=== PATIENT | male | born 1945 | race Caucasian/White ===

== ENCOUNTER 2021-04-15 13:37 | Inpatient (IN) ==
[2021-04-15] MEDS ORDERED: ONDANSETRON 4 MG/2 ML VIAL IV PRN (14:09)
[2021-04-15] MEDS ORDERED: diphenhydrAMINE CAP 25 MG CAPSULE PO PRN (14:09)
[2021-04-15] MEDS ORDERED: PROMETHAZINE 25 MG TABLET PO PRN (14:09)
[2021-04-15] MEDS ORDERED: MAGNESIUM SULF RIDER 4 GM/100 ML PREMIX IV PRN (14:09)
[2021-04-15] MEDS ORDERED: ACETAMINOPHEN 325 MG TABLET PO PRN (14:09)
[2021-04-15] MEDS ORDERED: DOCUSATE SODIUM 100 MG CAPSULE PO PRN (14:09)
[2021-04-15] MEDS ORDERED: ALUMINUM/MAGNES/SIMETH MAX STR 30 ML UDCUP PO PRN (14:09)
[2021-04-15] MEDS ORDERED: MORPHINE 4 MG/1 ML VIAL IV PRN (14:09)
[2021-04-15] MEDS ORDERED: hydrALAZINE 20 MG/1 ML VIAL IV PRN (14:09)
[2021-04-15] MEDS ORDERED: guaiFENesin/DM ER 600-30 MG TABLET PO PRN (14:09)
[2021-04-15] MEDS: DILTIAZEM INJ 100 MG in SODIUM CHLORIDE 0.9% 100 ML IV SCH (15:01)
[2021-04-15 15:43] LABS: Basophils % 0.5 % (0.0-0.8); Eosinophils % 0.3 % (0.00-10.9); Hematocrit 36.5 VOL% (42.0-52.0); Hemoglobin 11.7 GM/DL (14.0-18.0); Immature Granulocytes % 0.5 %; Immature Granulocytes Absolute 0.02 #; Lymphocytes # 0.9 10*3/uL (1.4-4.0); Lymphocytes % 22.9 % (21.2-54.2); Mean Corpuscular HGB Conc 32.1 GM/DL (32-36); Mean Corpuscular Volume 84.1 FL (87-102); Monocytes % 11.1 % (1.7-12.7); Neutrophils % 64.7 % (38.7-73.9); Platelet Count 182 T/CUMM (130-400); Red Blood Count 4.34 MC/CUMM (3.8-5.5); Red Cell Distribution Width 14.4 % (9.3-17.3)
[2021-04-15 16:15] LABS: Alanine Aminotransferase 18 U/L (16-61); Alkaline Phosphatase 91 U/L (45-117); Aspartate Amino Transferase 19 U/L (0-37); Blood Urea Nitrogen 17 MG/DL (7-18); Calcium 9.1 MG/DL (8.5-10.1); Carbon Dioxide 25 MMOL/L (21-32); Estimated Glom Filtration Rate 82 ML/MIN; Glucose 103 MG/DL (74-106); HDL Cholesterol 44 MG/DL (40-60); Osmolality,Calculated 287.8 MOS/KG (273-304); Potassium 4.3 MMOL/L (3.5-5.1); Risk Ratio 1.98; Sodium 144 MMOL/L (136-145); Thyroid Stimulating Hormone < 0.005 uIU/ml (0.358-3.74); Total Protein 6.2 G/DL (6.4-8.2); Triglycerides 78 MG/DL (2-150); VLDL CHOLESTEROL 15.6 MG/DL
[2021-04-15] MEDS: INSULIN LISPRO 100 UNIT/ML SUBCUT SCH ×2 (16:24→21:02)
[2021-04-15] MEDS: MAGNESIUM SULF RIDER 2 GM/50 ML PREMIX IV PRN (16:38)
[2021-04-15] MEDS: ALBUTEROL 2.5 MG/3 ML NEB RESP TX SCH (18:48)
[2021-04-15] MEDS: SOTALOL 80 MG TABLET PO SCH (21:02)
[2021-04-16] MEDS: ALBUTEROL 2.5 MG/3 ML NEB RESP TX SCH ×4 (01:05→23:17)
[2021-04-16 05:05] LABS: Basophils % 0.4 % (0.0-0.8); Eosinophils # 0.1 10*3/uL (0.0-0.87); Eosinophils % 1.2 % (0.00-10.9); Hematocrit 36.2 VOL% (42.0-52.0); Hemoglobin 11.4 GM/DL (14.0-18.0); Immature Granulocytes % 0.4 %; Immature Granulocytes Absolute 0.02 #; Lymphocytes # 1.2 10*3/uL (1.4-4.0); Lymphocytes % 25.4 % (21.2-54.2); Mean Corpuscular HGB Conc 31.5 GM/DL (32-36); Mean Corpuscular Volume 84.4 FL (87-102); Mean Platelet Volume 9.3 FL (9.6-12.0); Monocytes % 11.1 % (1.7-12.7); Neutrophils % 61.5 % (38.7-73.9); Platelet Count 192 T/CUMM (130-400); Red Blood Count 4.29 MC/CUMM (3.8-5.5); Red Cell Distribution Width 14.6 % (9.3-17.3); White Blood Count 4.9 T/CUMM (4-12)
[2021-04-16 05:35] LABS: Bilirubin,Total 0.9 MG/DL (0.2-1.0); Calcium 8.8 MG/DL (8.5-10.1); Osmolality,Calculated 288.8 MOS/KG (273-304); Potassium 4.1 MMOL/L (3.5-5.1); Total Protein 6.2 G/DL (6.4-8.2)
[2021-04-16] MEDS: INSULIN LISPRO 100 UNIT/ML SUBCUT SCH ×4 (10:02→20:34)
[2021-04-16] MEDS: SOTALOL 80 MG TABLET PO SCH ×3 (10:02→20:42)
[2021-04-16] MEDS: PANTOPRAZOLE 40 MG TABLET PO SCH ×2 (10:03→10:12)
[2021-04-16] MEDS ORDERED: DEXTROSE 50% 25 GM/50 ML VIAL IV PRN (15:32)
[2021-04-16] MEDS ORDERED: GLUCAGON 1 MG VIAL IM PRN (15:32)
[2021-04-16] MEDS: metFORMIN 500 MG TABLET PO SCH (17:22)
[2021-04-16] MEDS: RIVAROXABAN 20 MG TABLET PO SCH (17:22)
[2021-04-16] MEDS: ATORVASTATIN 40 MG TABLET PO SCH (20:42)
[2021-04-17] MEDS: ALBUTEROL 2.5 MG/3 ML NEB RESP TX SCH ×4 (02:25→19:37)
[2021-04-17] MEDS: DILTIAZEM INJ 100 MG in SODIUM CHLORIDE 0.9% 100 ML IV SCH ×2 (03:55→23:34)
[2021-04-17 06:26] LABS: Basophils % 0.2 % (0.0-0.8); Eosinophils # 0.1 10*3/uL (0.0-0.87); Eosinophils % 2.5 % (0.00-10.9); Hematocrit 34.8 VOL% (42.0-52.0); Immature Granulocytes % 0.2 %; Immature Granulocytes Absolute 0.01 #; Lymphocytes % 21.3 % (21.2-54.2); Mean Corpuscular HGB Conc 31.6 GM/DL (32-36); Mean Corpuscular Volume 84.1 FL (87-102); Mean Platelet Volume 9.6 FL (9.6-12.0); Monocytes % 11.2 % (1.7-12.7); Neutrophils % 64.6 % (38.7-73.9); Platelet Count 161 T/CUMM (130-400); Red Blood Count 4.14 MC/CUMM (3.8-5.5); Red Cell Distribution Width 14.4 % (9.3-17.3); White Blood Count 4.5 T/CUMM (4-12)
[2021-04-17 06:39] LABS: Calcium 8.8 MG/DL (8.5-10.1); Potassium 3.9 MMOL/L (3.5-5.1)
[2021-04-17] MEDS: INSULIN LISPRO 100 UNIT/ML SUBCUT SCH ×4 (07:41→20:39)
[2021-04-17] MEDS: metFORMIN 500 MG TABLET PO SCH ×2 (08:25→16:14)
[2021-04-17] MEDS: SOTALOL 80 MG TABLET PO SCH ×2 (08:26→20:39)
[2021-04-17] MEDS: MULTIVITAMIN (CENTRUM) TABLET PO SCH (08:26)
[2021-04-17] MEDS: PANTOPRAZOLE 40 MG TABLET PO SCH (08:26)
[2021-04-17] MEDS ORDERED: NON-FORMULARY MEDICATION (Omeprazole 20 MG capsule,delayed release(DR/EC)) PO SCH (09:00)
[2021-04-17] MEDS: methIMAzole 5 MG TABLET PO SCH (16:13)
[2021-04-17] MEDS: RIVAROXABAN 20 MG TABLET PO SCH (16:14)
[2021-04-17] MEDS: ATORVASTATIN 40 MG TABLET PO SCH (20:39)
[2021-04-18] MEDS: ALBUTEROL 2.5 MG/3 ML NEB RESP TX SCH ×4 (01:21→20:20)
[2021-04-18 05:08] LABS: Basophils % 0.2 % (0.0-0.8); Eosinophils # 0.1 10*3/uL (0.0-0.87); Eosinophils % 1.9 % (0.00-10.9); Hematocrit 33.4 VOL% (42.0-52.0); Hemoglobin 10.8 GM/DL (14.0-18.0); Immature Granulocytes % 0.2 %; Immature Granulocytes Absolute 0.01 #; Lymphocytes # 0.9 10*3/uL (1.4-4.0); Lymphocytes % 21.9 % (21.2-54.2); Mean Corpuscular HGB Conc 32.3 GM/DL (32-36); Mean Corpuscular Volume 83.5 FL (87-102); Mean Platelet Volume 9.8 FL (9.6-12.0); Monocytes % 12.4 % (1.7-12.7); Neutrophils % 63.4 % (38.7-73.9); Platelet Count 162 T/CUMM (130-400); Red Cell Distribution Width 14.3 % (9.3-17.3); White Blood Count 4.2 T/CUMM (4-12)
[2021-04-18 05:55] LABS: Calcium 8.6 MG/DL (8.5-10.1); Osmolality,Calculated 287.8 MOS/KG (273-304); Potassium 3.6 MMOL/L (3.5-5.1)
[2021-04-18] MEDS ORDERED: MAGNESIUM SULF RIDER 2 GM/50 ML PREMIX IV ONE (07:12)
[2021-04-18] MEDS: methIMAzole 5 MG TABLET PO SCH ×3 (09:04→17:54)
[2021-04-18] MEDS: SOTALOL 80 MG TABLET PO SCH ×2 (09:04→20:06)
[2021-04-18] MEDS: MULTIVITAMIN (CENTRUM) TABLET PO SCH (09:04)
[2021-04-18] MEDS: INSULIN LISPRO 100 UNIT/ML SUBCUT SCH ×4 (09:04→20:27)
[2021-04-18] MEDS: metFORMIN 500 MG TABLET PO SCH ×2 (09:04→17:54)
[2021-04-18] MEDS: PANTOPRAZOLE 40 MG TABLET PO SCH (09:04)
[2021-04-18] MEDS: RIVAROXABAN 20 MG TABLET PO SCH (17:54)
[2021-04-18] MEDS: POTASSIUM CHLORIDE 20 MEQ TABLET PO PRN ×2 (17:54→20:06)
[2021-04-18] MEDS: ATORVASTATIN 40 MG TABLET PO SCH (20:06)
[2021-04-18] MEDS: DILTIAZEM INJ 100 MG in SODIUM CHLORIDE 0.9% 100 ML IV SCH (22:30)
[2021-04-19] MEDS: ALBUTEROL 2.5 MG/3 ML NEB RESP TX SCH ×3 (02:04→13:20)
[2021-04-19 05:44] LABS: Basophils % 0.4 % (0.0-0.8); Eosinophils # 0.1 10*3/uL (0.0-0.87); Eosinophils % 1.4 % (0.00-10.9); Hematocrit 33.8 VOL% (42.0-52.0); Immature Granulocytes % 0.4 %; Immature Granulocytes Absolute 0.02 #; Lymphocytes % 20.8 % (21.2-54.2); Mean Corpuscular HGB Conc 32.5 GM/DL (32-36); Mean Corpuscular Volume 83.3 FL (87-102); Mean Platelet Volume 10.2 FL (9.6-12.0); Monocytes % 12.1 % (1.7-12.7); Neutrophils % 64.9 % (38.7-73.9); Platelet Count 168 T/CUMM (130-400); Red Blood Count 4.06 MC/CUMM (3.8-5.5); Red Cell Distribution Width 14.2 % (9.3-17.3); White Blood Count 4.9 T/CUMM (4-12)
[2021-04-19 06:12] LABS: Calcium 8.7 MG/DL (8.5-10.1); Osmolality,Calculated 285.8 MOS/KG (273-304); Potassium 3.8 MMOL/L (3.5-5.1)
[2021-04-19] MEDS: INSULIN LISPRO 100 UNIT/ML SUBCUT SCH ×3 (07:37→16:06)
[2021-04-19] MEDS: metFORMIN 500 MG TABLET PO SCH ×2 (08:53→16:06)
[2021-04-19] MEDS: methIMAzole 5 MG TABLET PO SCH ×3 (08:53→16:06)
[2021-04-19] MEDS: PANTOPRAZOLE 40 MG TABLET PO SCH (09:21)
[2021-04-19] MEDS: MULTIVITAMIN (CENTRUM) TABLET PO SCH (09:21)
[2021-04-19] MEDS: SOTALOL 80 MG TABLET PO SCH (09:21)
[2021-04-19] MEDS: MAGNESIUM SULF RIDER 2 GM/50 ML PREMIX IV PRN (09:22)
[2021-04-19] MEDS ORDERED: LIDOCAINE 2% 5 ML VIAL ONE (10:25)
[2021-04-19] MEDS ORDERED: propofoL 200 MG/20 ML VIAL IV ONE (10:25)
[2021-04-19 12:23] VITALS: BP 124/71
[2021-04-19] MEDS: DILTIAZEM INJ 100 MG in SODIUM CHLORIDE 0.9% 100 ML IV SCH (14:15)
== END 2021-04-19 16:31 | disposition home or self-care (01) | DRG 309 ==
LOC: N.TELES 14:13
PROVIDERS: ADMIT Internal Medicine Cardiovascular Disease; ATTEND Internal Medicine Cardiovascular Disease

== ENCOUNTER 2021-04-26 09:45 | Inpatient (IN) ==
[2021-04-26] MEDS ORDERED: DILTIAZEM 50 MG/10 ML VIAL IV STA ×2 (10:15→11:25)
[2021-04-26] MEDS ORDERED: ASPIRIN 325 MG TABLET PO STA (10:15)
[2021-04-26 10:56] LABS: Basophils % 0.2 % (0.0-0.8); Eosinophils # 0.1 10*3/uL (0.0-0.87); Eosinophils % 1.4 % (0.00-10.9); Hematocrit 38.5 VOL% (42.0-52.0); Hemoglobin 12.7 GM/DL (14.0-18.0); Immature Granulocytes % 0.2 %; Immature Granulocytes Absolute 0.01 #; Lymphocytes % 23.9 % (21.2-54.2); Mean Corpuscular Volume 81.7 FL (87-102); Mean Platelet Volume 9.5 FL (9.6-12.0); Monocytes % 11.6 % (1.7-12.7); Neutrophils % 62.7 % (38.7-73.9); Platelet Count 210 T/CUMM (130-400); Red Blood Count 4.71 MC/CUMM (3.8-5.5); Red Cell Distribution Width 14.1 % (9.3-17.3); White Blood Count 4.2 T/CUMM (4-12)
[2021-04-26 11:06] LABS: INR 1.3; PT Patient Result 14.1 SECS (10.5-12.0)
[2021-04-26 11:20] LABS: Albumin 3.1 G/DL (3.4-5.0); Bilirubin,Total 0.5 MG/DL (0.2-1.0); Calcium 9.3 MG/DL (8.5-10.1); Osmolality,Calculated 281.3 MOS/KG (273-304); Potassium 4.5 MMOL/L (3.5-5.1); Total Protein 6.6 G/DL (6.4-8.2)
[2021-04-26] MEDS ORDERED: METOPROLOL TARTRATE 5 MG/5 ML VIAL IV STA (12:00)
[2021-04-26 12:02] LABS: Free T4 (Free Thyroxine) 2.27 NG/DL (0.76-1.46); Thyroid Stimulating Hormone < 0.005 uIU/ml (0.358-3.74)
[2021-04-26] MEDS ORDERED: MAGNESIUM SULF RIDER 4 GM/100 ML PREMIX IV PRN (12:06)
[2021-04-26] MEDS ORDERED: ONDANSETRON 4 MG/2 ML VIAL IV PRN (12:06)
[2021-04-26] MEDS ORDERED: DEXTROSE 50% 25 GM/50 ML VIAL IV PRN (14:46)
[2021-04-26] MEDS ORDERED: GLUCAGON 1 MG VIAL IM PRN (14:46)
[2021-04-26] MEDS: METOPROLOL SUCCINATE XL 50 MG TABLET PO SCH (15:21)
[2021-04-26] MEDS: INSULIN LISPRO 100 UNIT/ML SUBCUT SCH ×2 (16:27→22:32)
[2021-04-26] MEDS: RIVAROXABAN 20 MG TABLET PO SCH (16:46)
[2021-04-26] MEDS ORDERED: methIMAzole 5 MG TABLET PO SCH ×2 (17:00)
[2021-04-26] MEDS ORDERED: METOPROLOL TARTRATE 5 MG/5 ML VIAL IV PRN ×3 (18:14→19:06)
[2021-04-26] MEDS ORDERED: METOPROLOL TARTRATE 5 MG/5 ML VIAL IV SCH ×2 (18:30)
[2021-04-26] MEDS: METOPROLOL TARTRATE 5 MG/5 ML VIAL IV SCH ×3 (18:35→18:50)
[2021-04-26] MEDS: ATORVASTATIN 40 MG TABLET PO SCH (20:37)
[2021-04-26] MEDS: SOTALOL 80 MG TABLET PO SCH (20:37)
[2021-04-27 06:09] LABS: Basophils % 0.2 % (0.0-0.8); Eosinophils # 0.1 10*3/uL (0.0-0.87); Eosinophils % 1.2 % (0.00-10.9); Hematocrit 36.8 VOL% (42.0-52.0); Immature Granulocytes % 0.2 %; Immature Granulocytes Absolute 0.01 #; Lymphocytes # 1.1 10*3/uL (1.4-4.0); Lymphocytes % 20.3 % (21.2-54.2); Mean Corpuscular HGB Conc 32.6 GM/DL (32-36); Mean Corpuscular Volume 81.6 FL (87-102); Mean Platelet Volume 9.5 FL (9.6-12.0); Monocytes % 9.1 % (1.7-12.7); Platelet Count 192 T/CUMM (130-400); Red Blood Count 4.51 MC/CUMM (3.8-5.5); White Blood Count 5.6 T/CUMM (4-12)
[2021-04-27 06:40] LABS: Albumin 2.8 G/DL (3.4-5.0); Bilirubin,Total 0.6 MG/DL (0.2-1.0); Calcium 9.1 MG/DL (8.5-10.1); Osmolality,Calculated 280.3 MOS/KG (273-304); Potassium 3.9 MMOL/L (3.5-5.1); Total Protein 5.9 G/DL (6.4-8.2)
[2021-04-27] MEDS: INSULIN LISPRO 100 UNIT/ML SUBCUT SCH ×4 (07:56→20:39)
[2021-04-27] MEDS: PANTOPRAZOLE 40 MG TABLET PO SCH (08:40)
[2021-04-27] MEDS: SOTALOL 80 MG TABLET PO SCH ×2 (08:40→20:42)
[2021-04-27] MEDS: METOPROLOL SUCCINATE XL 50 MG TABLET PO SCH (08:41)
[2021-04-27] MEDS: MAGNESIUM SULF RIDER 2 GM/50 ML PREMIX IV PRN (12:20)
[2021-04-27] MEDS: METOPROLOL TARTRATE 25 MG TABLET PO SCH ×3 (12:21→23:28)
[2021-04-27] MEDS: RIVAROXABAN 20 MG TABLET PO SCH (17:03)
[2021-04-27] MEDS: ATORVASTATIN 40 MG TABLET PO SCH (20:43)
[2021-04-28 05:22] LABS: Basophils % 0.5 % (0.0-0.8); Eosinophils # 0.1 10*3/uL (0.0-0.87); Eosinophils % 1.3 % (0.00-10.9); Hematocrit 36.6 VOL% (42.0-52.0); Hemoglobin 12.2 GM/DL (14.0-18.0); Immature Granulocytes % 0.3 %; Immature Granulocytes Absolute 0.01 #; Lymphocytes # 1.2 10*3/uL (1.4-4.0); Mean Corpuscular HGB Conc 33.3 GM/DL (32-36); Mean Corpuscular Volume 80.4 FL (87-102); Mean Platelet Volume 9.4 FL (9.6-12.0); Monocytes % 14.6 % (1.7-12.7); Neutrophils % 52.3 % (38.7-73.9); Platelet Count 181 T/CUMM (130-400); Red Blood Count 4.55 MC/CUMM (3.8-5.5); Red Cell Distribution Width 14.2 % (9.3-17.3); White Blood Count 3.8 T/CUMM (4-12)
[2021-04-28] MEDS: METOPROLOL TARTRATE 25 MG TABLET PO SCH (05:31)
[2021-04-28 05:42] LABS: Calcium 8.6 MG/DL (8.5-10.1); Osmolality,Calculated 283.1 MOS/KG (273-304); Potassium 3.7 MMOL/L (3.5-5.1)
[2021-04-28] MEDS: PANTOPRAZOLE 40 MG TABLET PO SCH (09:47)
[2021-04-28] MEDS: SOTALOL 80 MG TABLET PO SCH ×3 (09:47→20:49)
[2021-04-28] MEDS: INSULIN LISPRO 100 UNIT/ML SUBCUT SCH ×4 (09:50→20:50)
[2021-04-28] MEDS: RIVAROXABAN 20 MG TABLET PO SCH (16:58)
[2021-04-28] MEDS: ATORVASTATIN 40 MG TABLET PO SCH (20:49)
[2021-04-29 05:32] LABS: Basophils % 0.6 % (0.0-0.8); Eosinophils # 0.1 10*3/uL (0.0-0.87); Eosinophils % 1.5 % (0.00-10.9); Hematocrit 36.4 VOL% (42.0-52.0); Hemoglobin 11.9 GM/DL (14.0-18.0); Immature Granulocytes % 0.2 %; Immature Granulocytes Absolute 0.01 #; Lymphocytes # 1.6 10*3/uL (1.4-4.0); Lymphocytes % 29.3 % (21.2-54.2); Mean Corpuscular HGB Conc 32.7 GM/DL (32-36); Mean Corpuscular Volume 82.5 FL (87-102); Mean Platelet Volume 9.8 FL (9.6-12.0); Monocytes % 11.4 % (1.7-12.7); Platelet Count 193 T/CUMM (130-400); Red Blood Count 4.41 MC/CUMM (3.8-5.5); Red Cell Distribution Width 14.4 % (9.3-17.3); White Blood Count 5.4 T/CUMM (4-12)
[2021-04-29 05:53] LABS: Calcium 8.8 MG/DL (8.5-10.1); Potassium 3.7 MMOL/L (3.5-5.1)
[2021-04-29] MEDS: INSULIN LISPRO 100 UNIT/ML SUBCUT SCH ×4 (09:42→20:17)
[2021-04-29] MEDS: SOTALOL 80 MG TABLET PO SCH ×2 (09:52→20:17)
[2021-04-29] MEDS: PANTOPRAZOLE 40 MG TABLET PO SCH (09:52)
[2021-04-29] MEDS: DIGOXIN 0.5 MG/2 ML AMP IV SCH ×2 (10:00→15:36)
[2021-04-29] MEDS: RIVAROXABAN 20 MG TABLET PO SCH (19:25)
[2021-04-29] MEDS: ATORVASTATIN 40 MG TABLET PO SCH (20:18)
[2021-04-30 05:25] LABS: Basophils % 0.5 % (0.0-0.8); Eosinophils # 0.1 10*3/uL (0.0-0.87); Eosinophils % 1.6 % (0.00-10.9); Hematocrit 35.2 VOL% (42.0-52.0); Hemoglobin 11.9 GM/DL (14.0-18.0); Immature Granulocytes % 0.2 %; Immature Granulocytes Absolute 0.01 #; Lymphocytes # 1.3 10*3/uL (1.4-4.0); Lymphocytes % 29.3 % (21.2-54.2); Mean Corpuscular HGB Conc 33.8 GM/DL (32-36); Mean Corpuscular Volume 80.7 FL (87-102); Mean Platelet Volume 9.4 FL (9.6-12.0); Monocytes % 10.7 % (1.7-12.7); Neutrophils % 57.7 % (38.7-73.9); Platelet Count 183 T/CUMM (130-400); Red Blood Count 4.36 MC/CUMM (3.8-5.5); Red Cell Distribution Width 14.2 % (9.3-17.3); White Blood Count 4.3 T/CUMM (4-12)
[2021-04-30 05:56] LABS: Calcium 8.9 MG/DL (8.5-10.1); Potassium 3.6 MMOL/L (3.5-5.1)
[2021-04-30] MEDS: INSULIN LISPRO 100 UNIT/ML SUBCUT SCH ×4 (07:00→20:40)
[2021-04-30] MEDS: SOTALOL 80 MG TABLET PO SCH ×2 (08:38→20:38)
[2021-04-30] MEDS: PANTOPRAZOLE 40 MG TABLET PO SCH (08:38)
[2021-04-30] MEDS: methIMAzole 5 MG TABLET PO SCH ×3 (08:38→20:38)
[2021-04-30] MEDS: DIGOXIN 0.25 MG TABLET PO SCH ×2 (09:10→20:37)
[2021-04-30] MEDS ORDERED: DIGOXIN 0.25 MG TABLET PO SCH (13:00)
[2021-04-30] MEDS: RIVAROXABAN 20 MG TABLET PO SCH (16:08)
[2021-04-30] MEDS: ATORVASTATIN 40 MG TABLET PO SCH (20:38)
[2021-05-01 04:47] LABS: Basophils % 0.4 % (0.0-0.8); Eosinophils # 0.1 10*3/uL (0.0-0.87); Eosinophils % 1.1 % (0.00-10.9); Hematocrit 35.9 VOL% (42.0-52.0); Immature Granulocytes % 0.2 %; Immature Granulocytes Absolute 0.01 #; Lymphocytes # 1.6 10*3/uL (1.4-4.0); Lymphocytes % 29.9 % (21.2-54.2); Mean Corpuscular HGB Conc 33.4 GM/DL (32-36); Mean Corpuscular Volume 81.2 FL (87-102); Mean Platelet Volume 9.7 FL (9.6-12.0); Monocytes % 11.8 % (1.7-12.7); Neutrophils % 56.6 % (38.7-73.9); Platelet Count 191 T/CUMM (130-400); Red Blood Count 4.42 MC/CUMM (3.8-5.5); Red Cell Distribution Width 13.9 % (9.3-17.3); White Blood Count 5.3 T/CUMM (4-12)
[2021-05-01 05:10] LABS: Osmolality,Calculated 284.1 MOS/KG (273-304)
[2021-05-01] MEDS: INSULIN LISPRO 100 UNIT/ML SUBCUT SCH ×4 (07:51→20:29)
[2021-05-01] MEDS: methIMAzole 5 MG TABLET PO SCH ×3 (09:37→20:28)
[2021-05-01] MEDS: PANTOPRAZOLE 40 MG TABLET PO SCH (09:37)
[2021-05-01] MEDS: SOTALOL 80 MG TABLET PO SCH ×2 (09:37→20:28)
[2021-05-01] MEDS: DIGOXIN 0.25 MG TABLET PO SCH ×2 (09:37→20:27)
[2021-05-01] MEDS: RIVAROXABAN 20 MG TABLET PO SCH (16:34)
[2021-05-01] MEDS: ATORVASTATIN 40 MG TABLET PO SCH (20:28)
[2021-05-02 06:28] LABS: Basophils % 0.4 % (0.0-0.8); Eosinophils # 0.1 10*3/uL (0.0-0.87); Eosinophils % 1.7 % (0.00-10.9); Hematocrit 36.5 VOL% (42.0-52.0); Hemoglobin 11.9 GM/DL (14.0-18.0); Immature Granulocytes % 0.2 %; Immature Granulocytes Absolute 0.01 #; Lymphocytes # 1.5 10*3/uL (1.4-4.0); Lymphocytes % 28.1 % (21.2-54.2); Mean Corpuscular HGB Conc 32.6 GM/DL (32-36); Mean Corpuscular Volume 82.4 FL (87-102); Mean Platelet Volume 9.8 FL (9.6-12.0); Neutrophils % 58.6 % (38.7-73.9); Platelet Count 189 T/CUMM (130-400); Red Blood Count 4.43 MC/CUMM (3.8-5.5); White Blood Count 5.2 T/CUMM (4-12)
[2021-05-02 06:41] LABS: Calcium 8.7 MG/DL (8.5-10.1); Osmolality,Calculated 286.8 MOS/KG (273-304); Potassium 3.6 MMOL/L (3.5-5.1)
[2021-05-02] MEDS: methIMAzole 5 MG TABLET PO SCH ×3 (08:00→20:49)
[2021-05-02] MEDS: PANTOPRAZOLE 40 MG TABLET PO SCH (08:00)
[2021-05-02] MEDS: SOTALOL 80 MG TABLET PO SCH ×2 (08:00→20:49)
[2021-05-02] MEDS: DIGOXIN 0.25 MG TABLET PO SCH ×2 (08:00→20:49)
[2021-05-02] MEDS: INSULIN LISPRO 100 UNIT/ML SUBCUT SCH ×4 (10:57→20:50)
[2021-05-02] MEDS: RIVAROXABAN 20 MG TABLET PO SCH (16:20)
[2021-05-02] MEDS: ATORVASTATIN 40 MG TABLET PO SCH (20:49)
[2021-05-03 06:51] LABS: Basophils % 0.7 % (0.0-0.8); Eosinophils # 0.1 10*3/uL (0.0-0.87); Eosinophils % 1.6 % (0.00-10.9); Immature Granulocytes % 0.4 %; Immature Granulocytes Absolute 0.02 #; Lymphocytes # 1.5 10*3/uL (1.4-4.0); Lymphocytes % 27.7 % (21.2-54.2); Mean Corpuscular HGB Conc 33.3 GM/DL (32-36); Mean Corpuscular Volume 81.4 FL (87-102); Mean Platelet Volume 9.9 FL (9.6-12.0); Monocytes % 11.5 % (1.7-12.7); Neutrophils % 58.1 % (38.7-73.9); Platelet Count 205 T/CUMM (130-400); Red Blood Count 4.79 MC/CUMM (3.8-5.5); Red Cell Distribution Width 13.8 % (9.3-17.3); White Blood Count 5.5 T/CUMM (4-12)
[2021-05-03 07:29] LABS: Calcium 9.3 MG/DL (8.5-10.1); Osmolality,Calculated 280.3 MOS/KG (273-304); Potassium 3.9 MMOL/L (3.5-5.1)
[2021-05-03] MEDS: INSULIN LISPRO 100 UNIT/ML SUBCUT SCH ×4 (07:39→21:27)
[2021-05-03] MEDS: SOTALOL 80 MG TABLET PO SCH ×2 (09:41→21:28)
[2021-05-03] MEDS: methIMAzole 5 MG TABLET PO SCH ×3 (09:41→21:27)
[2021-05-03] MEDS: PANTOPRAZOLE 40 MG TABLET PO SCH (09:41)
[2021-05-03] MEDS: DIGOXIN 0.25 MG TABLET PO SCH (09:41)
[2021-05-03] MEDS ORDERED: propofoL 200 MG/20 ML VIAL IV ONE (13:09)
[2021-05-03] MEDS ORDERED: LIDOCAINE 2% 5 ML VIAL ONE (13:09)
[2021-05-03] MEDS: SODIUM CHLORIDE 0.9% 1,000 ML IV SCH (15:36)
[2021-05-03] MEDS: RIVAROXABAN 20 MG TABLET PO SCH (16:34)
[2021-05-03] MEDS: ATORVASTATIN 40 MG TABLET PO SCH (21:28)
[2021-05-04 08:33] LABS: Basophils % 0.5 % (0.0-0.8); Eosinophils # 0.1 10*3/uL (0.0-0.87); Eosinophils % 1.2 % (0.00-10.9); Hematocrit 36.7 VOL% (42.0-52.0); Hemoglobin 12.3 GM/DL (14.0-18.0); Immature Granulocytes % 0.2 %; Immature Granulocytes Absolute 0.01 #; Lymphocytes # 1.1 10*3/uL (1.4-4.0); Lymphocytes % 24.4 % (21.2-54.2); Mean Corpuscular HGB Conc 33.5 GM/DL (32-36); Mean Corpuscular Volume 80.8 FL (87-102); Mean Platelet Volume 9.5 FL (9.6-12.0); Monocytes % 11.1 % (1.7-12.7); Neutrophils % 62.6 % (38.7-73.9); Platelet Count 178 T/CUMM (130-400); Red Blood Count 4.54 MC/CUMM (3.8-5.5); Red Cell Distribution Width 13.9 % (9.3-17.3); White Blood Count 4.3 T/CUMM (4-12)
[2021-05-04 08:48] LABS: Osmolality,Calculated 276.5 MOS/KG (273-304); Potassium 3.5 MMOL/L (3.5-5.1)
[2021-05-04] MEDS: INSULIN LISPRO 100 UNIT/ML SUBCUT SCH ×4 (08:48→20:54)
[2021-05-04] MEDS: SODIUM CHLORIDE 0.9% 1,000 ML IV SCH (08:48)
[2021-05-04] MEDS: MAGNESIUM SULF RIDER 2 GM/50 ML PREMIX IV PRN ×2 (09:35→11:20)
[2021-05-04] MEDS: PANTOPRAZOLE 40 MG TABLET PO SCH (09:35)
[2021-05-04] MEDS: SOTALOL 80 MG TABLET PO SCH ×3 (09:35→20:53)
[2021-05-04] MEDS: methIMAzole 5 MG TABLET PO SCH ×3 (09:35→20:52)
[2021-05-04] MEDS ORDERED: MAGNESIUM SULF RIDER 4 GM/100 ML PREMIX IV ONE (10:21)
[2021-05-04] MEDS ORDERED: MAGNESIUM SULF RIDER 2 GM/50 ML PREMIX IV ONE (10:37)
[2021-05-04] MEDS: RIVAROXABAN 20 MG TABLET PO SCH (16:02)
[2021-05-04] MEDS: ATORVASTATIN 40 MG TABLET PO SCH (20:52)
[2021-05-04] MEDS ORDERED: SOTALOL 80 MG TABLET PO SCH (21:00)
[2021-05-05] MEDS: INSULIN LISPRO 100 UNIT/ML SUBCUT SCH ×2 (08:03→12:39)
[2021-05-05] MEDS: PANTOPRAZOLE 40 MG TABLET PO SCH (08:35)
[2021-05-05] MEDS: methIMAzole 5 MG TABLET PO SCH ×2 (08:35→14:45)
[2021-05-05] MEDS: SODIUM CHLORIDE 0.9% 1,000 ML IV SCH (09:07)
[2021-05-05] MEDS: SOTALOL 80 MG TABLET PO SCH (10:02)
[2021-05-05 13:04] VITALS: BP 129/55
== END 2021-05-05 16:20 | disposition home or self-care (01) | DRG 309 ==
LOC: N.ED 09:45 → N.EDINP 12:06 → N.TELEN 14:07
PROVIDERS: ADMIT Internal Medicine Cardiovascular Disease; ATTEND Internal Medicine Cardiovascular Disease